=== PATIENT | female | born 1995 | race Hispanic/Latino ===

== ENCOUNTER 2019-12-28 09:34 | Outpatient (CLI) | payer BC ==
[2019-12-28 10:08] LABS: Basophils % (Auto) 0.1 % (0.0-1.8); Eosinophils # (Auto) 0.1 K/mm3 (0.0-0.4); Eosinophils % (Auto) 0.9 % (0.0-4.3); Hematocrit 34.9 % (30.3-42.9); Hemoglobin 12.5 gm/dl (10.1-14.3); Lymphocytes # (Auto) 1.7 K/mm3 (1.2-5.4); Lymphocytes % (Auto) 16.9 % (13.4-35.0); Mean Corpuscular HGB Conc 36 % (30-34); Mean Corpuscular Volume 90 fl (79-97); Monocytes # (Auto) 0.5 K/mm3 (0.0-0.8); Monocytes % (Auto) 4.9 % (0.0-7.3); Platelet Count 220 K/mm3 (140-440); Red Blood Count 3.86 M/mm3 (3.65-5.03); Red Cell Distribution Width 12.8 % (13.2-15.2)
[2019-12-28 10:24] LABS: Bacteria,Urine 1+ /HPF (Negative); Bilirubin,Urine NEG (Negative); Blood,Urine NEG (Negative); Color,Urine Yellow (Yellow); Mucus,Urine FEW /HPF; Protein,Urine <15 mg/dL mg/dL (Negative); Urobilinogen,Urine < 2.0 mg/dL (<2.0)
== END 2019-12-28 09:35 | disposition home or self-care (01) ==
LOC: LAB 09:34
DX: Z13.1 Encounter for screening for diabetes mellitus (principal)
CPT/HCPCS: 36415; 81001; 82951; 85025; 86592; 86706; 86762; 86850; 86900; 86901; 87086

== ENCOUNTER 2020-01-12 12:07 | Outpatient (CLI) | payer BC ==
[2020-01-12] MEDS ORDERED: LACTATED RINGERS 1,000 ML IV ONE (12:28)
[2020-01-12 13:11] LABS: Bilirubin,Urine NEG (Negative); Blood,Urine NEG (Negative); Color,Urine Yellow (Yellow); Mucus,Urine 3+ /HPF; Protein,Urine <15 mg/dL mg/dL (Negative); Urobilinogen,Urine < 2.0 mg/dL (<2.0)
[2020-01-12 14:23] VITALS: BP 106/62
== END 2020-01-12 14:32 | disposition home or self-care (01) ==
LOC: TRG 12:07 → APU 12:08 → TRG 14:32
PROVIDERS: ATTEND Obstetrics & Gynecology
DX: O47.03 False labor before 37 completed weeks of gestation, third trimester (principal); Z3A.30 30 weeks gestation of pregnancy
CPT/HCPCS: 59025; 81001; 82962; 87086

== ENCOUNTER 2020-02-21 11:43 | Outpatient (CLI) | payer BC | END 2020-02-21 11:44 | disposition home or self-care (01) | LOC: LAB 11:43 | PROVIDERS: ATTEND Obstetrics & Gynecology | DX: Z34.00 Encounter for supervision of normal first pregnancy, unspecified trimester (principal); Z3A.00 Weeks of gestation of pregnancy not specified | CPT/HCPCS: 87116; 87591 ==

== ENCOUNTER 2020-03-26 07:49 | Inpatient (IN) | payer BC ==
[2020-03-26] MEDS ORDERED: ONDANSETRON 4 MG/2 ML INJ IV PRN ×3 (08:33→17:47)
[2020-03-26] MEDS ORDERED: fentaNYL 100 MCG/2 ML INJ IV PRN (08:33)
[2020-03-26] MEDS ORDERED: METHYLERGONOVINE MALEATE 0.2 MG/ML VIAL IM PRN (08:33)
[2020-03-26] MEDS ORDERED: miSOPROStol 200 MCG TAB PR PRN (08:33)
[2020-03-26] MEDS ORDERED: LIDOCAINE (2%) 20 MG/1 ML VIAL 20 ML MDV INFILTRATI NR (08:33)
[2020-03-26] MEDS ORDERED: ePHEDrine SULFATE 50 MG/1 ML INJ IV PRN ×2 (08:33→10:00)
[2020-03-26] MEDS ORDERED: TERBUTALINE 1 MG/1 ML INJ SUB-Q PRN (08:33)
[2020-03-26] MEDS ORDERED: AMPICILLIN/NS 2 GM/100 ML 2 GM/100 ML BAG IV ONE (08:33)
[2020-03-26] MEDS ORDERED: BUTORPHANOL 2 MG/1 ML INJ IV PRN (09:00)
[2020-03-26] MEDS ORDERED: NALOXONE 0.4 MG/1 ML INJ IV PRN (09:00)
[2020-03-26] MEDS ORDERED: OXYTOCIN DRIP 30 UNITS/500 ML BAG IV SCH ×2 (09:00)
[2020-03-26] MEDS: LACTATED RINGERS 1,000 ML IV SCH ×2 (09:02→13:15)
[2020-03-26 09:17] LABS: Hematocrit 35.6 % (30.3-42.9); Hemoglobin 11.8 gm/dl (10.1-14.3); Mean Corpuscular HGB Conc 33 % (30-34); Mean Corpuscular Volume 83 fl (79-97); Platelet Count 213 K/mm3 (140-440); Red Blood Count 4.29 M/mm3 (3.65-5.03); Red Cell Distribution Width 15.5 % (13.2-15.2)
--- NOTE | 2020-03-26 09:36 | Anesthesia Consultation ---
Anesthesia Consult and Med Hx Date of service: 03/26/20 - Airway Anesthetic Teeth Evaluation: Good ROM Head & Neck: Adequate Mental/Hyoid Distance: Adequate Mallampati Class: Class II Intubation Access Assessment: Good - Pulmonary Exam CTA: Yes - Cardiac Exam Cardiac Exam: RRR - Pre-Operative Health Status ASA Pre-Surgery Classification: ASA2 Proposed Anesthetic Plan: Epidural - Pulmonary Hx Smoking: No Hx Asthma: No COPD: No Hx Pneumonia: No Hx Sleep Apnea: No - Cardiovascular System Hx Hypertension: No Hx Heart Attack/AMI: No Hx Angina: No - Central Nervous System Hx Seizures: No Hx Psychiatric Problems: No - Gastrointestinal Hx Gastroesophageal Reflux Disease: No - Endocrine Hx Renal Disease: No Hx End Stage Renal Disease: No Hx Hypothyroidism: No Hx Hyperthyroidism: No - Hematic Hx Anemia: No Hx Sickle Cell Disease: No - Other Systems Hx Alcohol Use: No
--- NOTE | 2020-03-26 09:55 | Progress Note ---
Labor Epidural - Labor Epidural Start Time: 09:40 Stop Time: 09:51 Performed by:: BRANDON TELLES Procedure: Patient is requesting a laboring epidural for laboring pain. Patient IDed, H&P reviewed, all questions and concerns were answered, and consent was signed. Timeout was performed at bedside. Patient in sitting position. Sterile prep and drape was performed. 3ml of 1% lidocaine skin wheal at L[3]- L [4]. 18- gauge Touhy epidural needle was advanced to loss of resistance with air technique. Negative CSF negative blood. Epidural catheter advanced to [11] centimeters. [-] Aspiration [-] test dose. Sterile dressing applied. Patient tolerated procedure.
[2020-03-26] MEDS ORDERED: diphenhydrAMINE 50 MG/ML VIAL IV PRN (10:00)
[2020-03-26] MEDS ORDERED: NalbUPHINE 10 MG/1 ML INJ IV PRN (10:00)
[2020-03-26] MEDS ORDERED: fentaNYL-BUPIV 2 MCG/ML-0.125% 200 MCG/100 ML BAG EPIDURAL SCH (10:00)
--- NOTE | 2020-03-26 12:31 | History and Physical Report ---
History of Present Illness Date of examination: 03/26/20 Date of admission: 03/26/20 08:47 Chief complaint: contractions History of present illness: Pt is a 25 year old female primigravida GEMA 03/21/20 at 40w5d who presents with regular painful contractions and advanced cervical dilation of 6 cm. She denies leakage of fluid and vaginal bleeding. She has had care at [facility] since 14 wks complicated by COVID this , syncopal episodes. She is GBS Negative. Past History Past Medical History: no pertinent history Past Surgical History: no surgical history Family/Genetic History: none Social history: no significant social history - Obstetrical History Expected Date of Delivery: 03/21/20 Actual Gestation: 40 Week(s) 5 Day(s) : 1 Medications and Allergies Allergies Allergy/AdvReac Type Severity Reaction Status Date / Time No Known Allergies Allergy Verified 01/12/20 12:27 Home Medications Medication Instructions Recorded Confirmed Last Taken Type No Known Home Medications [No 03/26/20 03/26/20 Unknown History Reported Home Medications] Active Meds: Active Medications Butorphanol Tartrate (Stadol) 2 mg IV Q2H PRN PRN Reason: Pain , Severe (7-10) Diphenhydramine HCl (Benadryl) 12.5 mg IV Q2H PRN PRN Reason: Itching Ephedrine Sulfate (Ephedrine Sulfate) 10 mg IV Q2M PRN PRN Reason: Hypotension Fentanyl (Sublimaze) 100 mcg IV Q2H PRN PRN Reason: Pain,Severe (7-10) LABOR PAIN Last Admin: 03/26/20 09:00 Dose: 100 mcg Documented by: Oxytocin/Sodium Chloride (Pitocin/Ns 30 Unit/500ml) 30 units in 500 mls @ 2 mls/hr IV TITR SARA; Protocol Lactated Ringer's (Lactated Ringers) 1,000 mls @ 125 mls/hr IV DIRECT SARA Last Admin: 03/26/20 09:02 Dose: 125 mls/hr Documented by: Oxytocin/Sodium Chloride (Pitocin/Ns 30 Unit/500ml) 30 units in 500 mls @ 40 mls/hr IV TITR SARA; Protocol Fentanyl/Bupivacaine/Sodium Chlor (Fentanyl-Bupiv 2 Mcg/Ml-0.125%) 200 mcg in 100 mls @ 12 mls/hr EPIDURAL TITR SARA; Protocol Last Admin: 03/26/20 10:11 Dose: 12 mls/hr Documented by: Methylergonovine Maleate (Methergine) 0.2 mg IM ONCE PRN PRN Reason: Uterine Bleeding Stop: 03/26/20 23:00 Mineral Oil (Mineral Oil) 30 ml PO QHS PRN PRN Reason: Constipation Misoprostol (Cytotec) 800 mcg ID ONCE PRN PRN Reason: Uterine Bleeding Nalbuphine HCl (Nalbuphine) 2.5 mg IV Q2H PRN PRN Reason: Itching Naloxone HCl (Naloxone) 0.1 mg IV Q2MIN PRN PRN Reason: Res Rate </= 8 or 02 SAT < 92% Ondansetron HCl (Zofran) 4 mg IV Q8H PRN PRN Reason: Nausea And Vomiting Terbutaline Sulfate (Brethine) 0.25 mg SUB-Q ONCE PRN PRN Reason: Hyperstimulation/Hypertonicity Review of Systems All systems: negative - Vital Signs Vital signs: Vital Signs Temp Resp 97.9 F 20 03/26/20 08:17 03/26/20 08:17 Temp Pulse Resp BP Pulse Ox 98.5 F 104 H 18 123/80 100 03/26/20 11:51 03/26/20 12:25 03/26/20 11:51 03/26/20 12:15 03/26/20 12:25 - Physical Exam Breasts: Positive: deferred Abdomen: Positive: soft (gravid ) Uterus: Positive: enlarged (gravid ) Extremities: Positive: normal - Obstetrical FHR: auscultation normal Uterine Contraction Monitor Mode: External Cervical Dilatation: 9.5 Cervical Effacement Percentage: 100 station: -1 Uterine Contraction Pattern: Regular Uterine Tone Measurement Phase: Resting Uterine Contraction Intensity: Mild Results Result Diagrams: 03/26/20 08:50 Abnormal lab results 03/26/20 Range/Units 08:50 WBC 12.6 H (4.5-11.0) K/mm3 MCH 27 L (28-32) pg RDW 15.5 H (13.2-15.2) % All other labs normal. Assessment and Plan A: IUP at 40w5d Transitional Labor GBS Negative P: AROM- thick meconium. NICU aware Routine intrapartum care Closely monitor maternal and status
[2020-03-26] MEDS ORDERED: AMPICILLIN/NS 1 GM/50 ML 1 GM/50 ML BAG IV SCH (12:35)
--- NOTE | 2020-03-26 15:07 | Procedure Note ---
OB Delivery Note - Delivery Date of Delivery: 03/26/20 Surgeon: LANG ROTHMAN Estimated blood loss: other (400 mL) - Vaginal Delivery presentation: vertex Delivery position: OA Intrapartum events: PROM->1hr before delivery, meconium, decreased FHT variability, mult.variable deceleratio Delivery induction: none Delivery augmentation: rupture of membranes Delivery monitor: external FHT, external uterine Route of delivery: Delivery placenta: spontaneous Delivery cord: nuchal cord (tight, doubly clamped and cut ) Episiotomy: none Delivery laceration: 1st degree, other (first degree perineal, left labial, left periurethral ) Delivery repair: vicryl Anesthesia: epidural - A at 1 minute: 8 at 5 minutes: 9 Infant Gender: Female (3551g (7lb 3oz) @ 1438 pm)
[2020-03-26] MEDS ORDERED: FAMOTIDINE 20 MG/2 ML INJ IV ONE (17:00)
--- NOTE | 2020-03-26 17:11 | Post Anesthesia Evaluation ---
- Post Anesthesia Evaluation Patient Participated: Yes Airway Patent: Yes Stable Respiratory Function: Yes Nausea/Vomiting: No Temp > 96.8F: Yes Pain Manageable: Yes Adequeate Hydration: Yes Anesthesia Complications: No Block Receding Appropriately: Yes Patient on Ventilator: No
[2020-03-26] MEDS ORDERED: LANOLIN/ZINC/DIMETHICONE (LANSINOH) 7 GM TP PRN ×2 (17:47)
[2020-03-26] MEDS ORDERED: MAGNESIUM HYDROXIDE (MOM) ORAL LIQD UDC PO PRN (17:47)
[2020-03-26] MEDS ORDERED: BENZOCAINE/MENTHOL 20/0.5% TOP SPRAY 56 GM TP PRN (17:47)
[2020-03-26] MEDS ORDERED: HYDROcodone/ACETAMINOPHEN 5-325 MG TAB PO PRN (17:47)
[2020-03-26] MEDS ORDERED: WITCH HAZEL/ GLYCERIN PAD TP PRN (17:47)
[2020-03-26] MEDS ORDERED: diphenhydrAMINE 25 MG CAP PO PRN (17:47)
[2020-03-26] MEDS ORDERED: PROMETHAZINE 25 MG RECT SUPP PR PRN (17:47)
[2020-03-26] MEDS ORDERED: PROMETHAZINE 25 MG TAB PO PRN (17:47)
[2020-03-26] MEDS: IBUPROFEN 600 MG TAB PO SCH ×2 (18:12→23:54)
[2020-03-26] MEDS ORDERED: MINERAL OIL 30 ML ORAL LIQD PO PRN (22:00)
[2020-03-26] MEDS: FERROUS SULFATE 325 MG TAB PO SCH (23:34)
[2020-03-26] MEDS: DOCUSATE SODIUM 100 MG CAP PO SCH (23:34)
[2020-03-27] MEDS: IBUPROFEN 600 MG TAB PO SCH ×3 (05:50→17:38)
[2020-03-27] MEDS ORDERED: DIPHtheria,PERTUSSIS(ACELL),TETANUS VACCINE/PF 0.5 ML VIAL IM ONE (06:00)
--- NOTE | 2020-03-27 07:55 | Progress Note ---
Assessment and Plan A: PPD1 s/p at term. P: Routine care with anticipated discharge at 24hrs . Subjective - Subjective Date of service: 03/27/20 Principal diagnosis: S/P at term Interval history: PPD1 S/P at term. Patient without complaints at this time. Patient reports: appetite normal, voiding normally, pain well controlled, ambulating normally : doing well Objective - Vital Signs Latest vital signs: Vital Signs Temp Pulse Resp BP BP Pulse Ox 03/27/20 00:37 98.3 F 83 20 110/50 95 03/26/20 20:47 98.7 F 89 20 118/65 95 03/26/20 17:20 98.7 F 73 18 112/47 98 03/26/20 16:55 98.3 F 20 03/26/20 16:52 71 110/64 03/26/20 15:48 98.7 F 18 03/26/20 15:46 80 132/65 03/26/20 15:30 82 119/73 03/26/20 15:10 81 18 123/65 96 03/26/20 15:05 79 97 03/26/20 15:00 102 H 123/65 96 03/26/20 14:57 94 H 94 03/26/20 14:55 100 H 95 03/26/20 14:51 95 H 94 03/26/20 14:50 94 H 95 03/26/20 14:45 98.4 F 98 H 18 112/58 95 03/26/20 14:40 111 H 97 03/26/20 14:35 100 H 97 03/26/20 14:32 87 136/72 03/26/20 14:30 97 H 99 03/26/20 14:25 99 H 100 03/26/20 14:20 100 H 99 03/26/20 14:15 90 118/64 100 03/26/20 14:10 82 98 03/26/20 14:05 90 100 03/26/20 14:00 85 113/58 99 03/26/20 13:55 86 100 03/26/20 13:53 98.4 F 03/26/20 13:50 84 99 03/26/20 13:46 89 125/73 03/26/20 13:45 103 H 100 03/26/20 13:40 88 100 03/26/20 13:35 88 98 03/26/20 13:30 90 128/80 99 03/26/20 13:25 94 H 99 03/26/20 13:20 95 H 100 03/26/20 13:15 88 117/74 99 03/26/20 13:10 105 H 100 03/26/20 13:05 98 H 100 03/26/20 13:01 90 117/66 03/26/20 13:00 93 H 100 03/26/20 12:55 101 H 100 03/26/20 12:50 105 H 99 03/26/20 12:45 102 H 136/68 100 03/26/20 12:40 104 H 100 03/26/20 12:35 94 H 100 03/26/20 12:31 91 H 108/55 03/26/20 12:30 85 100 03/26/20 12:25 104 H 100 03/26/20 12:20 108 H 100 03/26/20 12:15 115 H 123/80 97 03/26/20 12:10 107 H 97 03/26/20 12:05 109 H 94 03/26/20 12:00 133 H 126/71 97 03/26/20 11:55 111 H 97 03/26/20 11:51 98.5 F 18 03/26/20 11:50 119 H 98 03/26/20 11:46 120 H 109/71 03/26/20 11:45 122 H 97 03/26/20 11:40 120 H 97 03/26/20 11:35 120 H 98 03/26/20 11:33 107 H 94 03/26/20 11:30 105 H 112/71 94 03/26/20 11:27 106 H 94 03/26/20 11:25 95 H 94 03/26/20 11:22 88 94 03/26/20 11:20 105 H 96 03/26/20 11:15 110 H 114/71 96 03/26/20 11:10 105 H 96 03/26/20 11:06 107 H 94 03/26/20 11:05 95 H 96 03/26/20 11:04 98.1 F 16 03/26/20 11:01 101 H 117/71 03/26/20 11:00 80 96 03/26/20 10:55 103 H 94 03/26/20 10:50 96 H 95 03/26/20 10:45 96 H 114/70 96 03/26/20 10:40 84 95 03/26/20 10:35 91 H 96 03/26/20 10:31 99 H 111/72 03/26/20 10:30 88 97 03/26/20 10:25 93 H 97 03/26/20 10:20 88 98 03/26/20 10:16 94 H 129/77 03/26/20 10:15 84 99 03/26/20 10:10 84 98 03/26/20 10:05 81 97 03/26/20 10:01 80 97/55 03/26/20 10:00 71 98 03/26/20 09:55 108 H 90 03/26/20 09:52 107 H 129/79 03/26/20 09:48 88 121/77 96 03/26/20 09:43 115 H 96 03/26/20 09:42 90 137/79 03/26/20 09:38 111 H 99 03/26/20 09:36 113 H 122/78 03/26/20 08:53 81 134/81 03/26/20 08:22 78 119/83 03/26/20 08:17 97.9 F 20 Intake and Output 03/26/20 03/26/20 03/27/20 15:59 23:59 07:59 Intake Total 527.083 360 Output Total 900 600 Balance -372.917 -240 Intake: IV 527.083 Lactated Ringers 1,000 ml 527.083 @ 125 mls/hr IV DIRECT [facility] Rx#:[id number] Intake, Free Water 360 Output: Urine 900 600 Indwelling Catheter 250 Uretheral (Sebastian) 250 Void 400 600 Other: Total, Output Amount 400 300 # Voids Void 1 1 Weight 70.307 kg Estimated Blood Loss 400 - Exam Breasts: Present: deferred Uterus: Present: normal, firm, fundal height below umbilicus - Labs Labs: Abnormal lab results 03/26/20 Range/Units 08:50 WBC 12.6 H (4.5-11.0) K/mm3 MCH 27 L (28-32) pg RDW 15.5 H (13.2-15.2) %
--- NOTE | 2020-03-27 08:01 | Discharge Summary ---
Providers - Providers Date of Admission: 03/26/20 08:47 Date of discharge: 03/27/20 Attending physician: LANG ROTHMAN 03/26/20 17:47 Consult to Breaker Off [CONS] Routine Reason For Exam: assistance with , SNS Primary care physician: SADIA GONZALEZ Hospitalization Reason for admission: IUP at term Delivery: Episiotomy: none Laceration: 1st degree, other (1st degree perineal, left labial and left periurethral) Other procedures: none complications: none Discharge diagnosis: IUP at term delivered [place] baby: female Condition at discharge: Good Disposition: DC- TO HOME OR SELFCARE Plan - Discharge Medications Prescriptions: Ibuprofen [Motrin] 800 mg PO Q8HR PRN #30 tablet PRN Reason: Pain, Moderate (4-6) - Provider Discharge Summary Activity: no sex for 6 weeks, no heavy lifting 4 weeks Diet: routine Instructions: routine Additional instructions: [] Smoking cessation referral if applicable(refer to patient education folder for contact #) [] Refer to [facility]'s [facility] Booklet Call your doctor immediately for: * Fever > 100.5 * Heavy vaginal bleeding ( >1 pad per hour) * Severe persistent headache * Shortness of breath * Reddened, hot, painful area to leg or breast * Drainage or odor from incision. * Keep incision clean and dry at all times and follow doctor's instructions regarding bathing/showering - Follow up plan Follow up: SADIA GONZALEZ MD [Primary Care Provider] - 03/27/20 3:00 pm ANABELLA FALL CNM [Advanced Practice Nurse] - 05/07/20
[2020-03-27] MEDS: FERROUS SULFATE 325 MG TAB PO SCH (10:12)
[2020-03-27] MEDS: DOCUSATE SODIUM 100 MG CAP PO SCH (10:13)
[2020-03-27] MEDS ORDERED: MEASLES, MUMPS & RUBELLA 12,500 UNIT/0.5 ML VACCINE SUB-Q ONE (15:54)
[2020-03-27 17:45] VITALS: BP 100/62
== END 2020-03-27 18:00 | disposition home or self-care (01) | DRG 807 ==
LOC: EEVIPCON 07:49 → TRG 07:49 → APU 07:51 → LD 08:27 → TRG 08:40 → LD 08:47 → OB 17:43
PROVIDERS: ADMIT Obstetrics & Gynecology; ATTEND Obstetrics & Gynecology
PROC: 10E0XZZ Delivery of Products of Conception, External Approach (ICD-10-PCS; principal; 2020-03-26)
PROC: 10907ZC Drainage of Amniotic Fluid, Therapeutic from Products of Conception, Via Natural or Artificial Opening (ICD-10-PCS; 2020-03-26)
PROC: 0HQ9XZZ Repair Perineum Skin, External Approach (ICD-10-PCS; 2020-03-26)
PROC: 0UQMXZZ Repair Vulva, External Approach (ICD-10-PCS; 2020-03-26)
PROC: 3E0R3BZ Introduction of Anesthetic Agent into Spinal Canal, Percutaneous Approach (ICD-10-PCS; 2020-03-26)
PROC: 00HU33Z Insertion of Infusion Device into Spinal Canal, Percutaneous Approach (ICD-10-PCS; 2020-03-26)
PROC: 3E0234Z Introduction of Serum, Toxoid and Vaccine into Muscle, Percutaneous Approach (ICD-10-PCS; 2020-03-27)
DX: O77.0 Labor and delivery complicated by meconium in amniotic fluid (principal); Z37.0 Single live birth; Z3A.40 40 weeks gestation of pregnancy; Z20.828 Contact with and (suspected) exposure to other viral communicable diseases; Z23 Encounter for immunization; O76 Abnormality in fetal heart rate and rhythm complicating labor and delivery; O69.1XX0 Labor and delivery complicated by cord around neck, with compression, not applicable or unspecified; O71.82 Other specified trauma to perineum and vulva; O70.0 First degree perineal laceration during delivery
CPT/HCPCS: 36415; 85014; 85018; 85027; 86592; 86850; 86900; 86901; 88307; G0378; J2590; J3010; J7120; U0003